=== PATIENT | male | born 1995 | race African-American/Black ===

== ENCOUNTER 2019-06-21 15:53 | Emergency (ER) | payer MEDICAID ==
[~2019-06-21] VITALS: Ht 177.8 cm; Wt 68.0 kg
[2019-06-21 16:35] VITALS: BP 111/74
[2019-06-21] MEDS ORDERED: ACETAMINOPHEN 325MG TABLET PO ONE (17:00)
[2019-06-21] MEDS ORDERED: BACITRACIN ZINC OINT UDPKT TOP ONE (17:00)
== END 2019-06-21 17:30 | disposition left against medical advice (07) ==
LOC: ER 16:11
DX: S00.83XA Contusion of other part of head, initial encounter (principal); Y08.89XA Assault by other specified means, initial encounter; Y93.89 Activity, other specified; Y92.89 Other specified places as the place of occurrence of the external cause; Y99.8 Other external cause status
CPT/HCPCS: 99283

== ENCOUNTER 2019-09-03 19:09 | Emergency (ER) | payer BC, MEDICAID ==
[~2019-09-03] VITALS: Ht 182.9 cm; Wt 82.0 kg
[2019-09-03] MEDS ORDERED: KETOROLAC 30MG/ML VIAL IV STA ×2 (20:54→23:42)
[2019-09-03] MEDS ORDERED: CEFTRIAXONE 1 G PREMIX 50 ML IV ONE (21:00)
[2019-09-03 21:42] LABS: BASOPHILS % 0.5 % (0.0-2.0); HEMATOCRIT. 46.8 % (42.0-52.0); HEMOGLOBIN. 15.5 g/dL (14.0-18.0); LYMPHOCYTES % 10.1 % (20.0-50.0); MEAN CORPUSCULAR HEMOGLOBIN 29.4 pg (28.0-32.0); MEAN PLATELET VOLUME 9.3 fl (7.4-10.4); MONOCYTES % 10.2 % (2.0-8.0); NEUTROPHILS % 79.2 % (40.0-76.0); PLATELET 182 x1000/uL (130-400); RED BLOOD CELL COUNT 5.26 mill/uL (4.7-6.1); RED CELL DISTRIBUTION WIDTH 13.3 % (11.6-14.6)
[2019-09-03 21:49] LABS: CHLORIDE 99 mEq/L (98-107)
[2019-09-03] MEDS ORDERED: IOHEXOL-300 100 ML BOTTLE ONE (22:46)
[2019-09-03] MEDS ORDERED: VANCOMYCIN 1 G PREMIX 200 ML IV ONE (23:45)
[2019-09-03] MEDS ORDERED: BACITRACIN ZINC OINT UDPKT TOP ONE (23:45)
[2019-09-03] MEDS ORDERED: LIDOCAINE HCL/PF 1% 10 MG/ML 5ML VIAL IJ ONE (23:45)
[2019-09-04 02:01] VITALS: BP 121/81
== END 2019-09-04 02:13 | disposition home or self-care (01) ==
LOC: ER 19:09
DX: L02.214 Cutaneous abscess of groin (principal)
CPT/HCPCS: 36415; 72193; 80053; 85025; 87040; 96365; 96366; 96367; 96375; 96376; 99284; J0696; J1885; J3370; J3490; Q9967; Z7610

== ENCOUNTER 2019-09-06 12:12 | Emergency (ER) | payer BC, MEDICAID ==
[~2019-09-06] VITALS: Ht 177.8 cm; Wt 82.0 kg
[2019-09-06 12:37] VITALS: BP 118/71
== END 2019-09-06 15:15 | disposition left against medical advice (07) ==
LOC: ER 12:12
DX: L02.31 Cutaneous abscess of buttock (principal); Z53.21 Procedure and treatment not carried out due to patient leaving prior to being seen by health care provider

== ENCOUNTER 2019-09-06 16:20 | Emergency (ER) | payer BC, MEDICAID ==
[~2019-09-06] VITALS: Ht 177.8 cm; Wt 82.0 kg
[2019-09-06] MEDS ORDERED: BACITRACIN 50,000 UNITS/VIAL IM ONE (17:15)
[2019-09-06] MEDS ORDERED: BACITRACIN ZINC OINT UDPKT TOP ONE (17:30)
[2019-09-06 18:01] VITALS: BP 124/75
== END 2019-09-06 18:08 | disposition home or self-care (01) ==
LOC: ER 16:20
DX: L02.214 Cutaneous abscess of groin (principal)
CPT/HCPCS: 99283; J3490

== ENCOUNTER 2020-02-17 09:18 | Emergency (ER) | payer BC, MEDICAID ==
[~2020-02-17] VITALS: Ht 180.3 cm; Wt 60.0 kg
[2020-02-17 10:23] VITALS: BP 112/78
== END 2020-02-17 10:25 | disposition home or self-care (01) ==
LOC: ER 09:18
DX: R21 Rash and other nonspecific skin eruption (principal)
CPT/HCPCS: 99281

== ENCOUNTER 2020-02-21 09:16 | Emergency (ER) | payer BC, MEDICAID ==
[~2020-02-21] VITALS: Ht 180.3 cm; Wt 61.0 kg
[2020-02-21 10:15] VITALS: BP 126/93
== END 2020-02-21 10:16 | disposition home or self-care (01) ==
LOC: ER 09:24
DX: A64 Unspecified sexually transmitted disease (principal); R20.8 Other disturbances of skin sensation
CPT/HCPCS: 99284

== ENCOUNTER 2020-03-15 09:30 | Emergency (ER) | payer BC, MEDICAID, OTHER ==
[~2020-03-15] VITALS: Ht 180.3 cm; Wt 66.0 kg
[2020-03-15 10:00] VITALS: BP 114/61
== END 2020-03-15 10:06 | disposition home or self-care (01) ==
LOC: ER 09:30
DX: N48.89 Other specified disorders of penis (principal)
CPT/HCPCS: 99281

== ENCOUNTER 2020-03-22 11:17 | Emergency (ER) | payer OTHER ==
[~2020-03-22] VITALS: Ht 180.3 cm; Wt 63.5 kg
[2020-03-22 11:30] VITALS: BP 100/76
== END 2020-03-22 12:21 | disposition home or self-care (01) ==
LOC: ER 11:17
DX: B35.6 Tinea cruris (principal)
CPT/HCPCS: 99281; 99282

== ENCOUNTER 2020-03-26 11:36 | Emergency (ER) | payer OTHER ==
[~2020-03-26] VITALS: Ht 180.3 cm; Wt 62.0 kg
[2020-03-26 11:37] VITALS: BP 114/72
== END 2020-03-26 11:53 | disposition left against medical advice (07) ==
LOC: ER 11:40
DX: Z53.21 Procedure and treatment not carried out due to patient leaving prior to being seen by health care provider (principal)

== ENCOUNTER 2020-05-27 21:18 | Emergency (ER) | payer OTHER ==
[~2020-05-27] VITALS: Ht 180.3 cm; Wt 72.0 kg
[2020-05-28 01:38] VITALS: BP 105/68
== END 2020-05-28 01:45 | disposition home or self-care (01) ==
LOC: ER 21:18
DX: S06.0X9A Concussion with loss of consciousness of unspecified duration, initial encounter (principal); F17.210 Nicotine dependence, cigarettes, uncomplicated; V43.52XA Car driver injured in collision with other type car in traffic accident, initial encounter; Y93.89 Activity, other specified; Y92.488 Other paved roadways as the place of occurrence of the external cause
CPT/HCPCS: 93005; 99284

== ENCOUNTER 2020-08-30 10:40 | Emergency (ER) | payer MEDICAID, OTHER ==
[~2020-08-30] VITALS: Ht 175.3 cm; Wt 70.0 kg
[2020-08-30 10:47] VITALS: BP 105/69
== END 2020-08-30 11:48 | disposition home or self-care (01) ==
LOC: ER 10:40
DX: F41.9 Anxiety disorder, unspecified (principal); F12.10 Cannabis abuse, uncomplicated
CPT/HCPCS: 99281

== ENCOUNTER 2020-09-20 19:30 | Emergency (ER) | payer OTHER ==
[~2020-09-20] VITALS: Ht 180.3 cm; Wt 60.0 kg
[2020-09-20 20:21] VITALS: BP 112/74
[2020-09-20] MEDS ORDERED: AZIT250T12 MT (21:00)
[2020-09-20] MEDS ORDERED: IBUP-2029 MT (21:00)
== END 2020-09-20 21:09 | disposition home or self-care (01) ==
LOC: ER 19:30
DX: J02.8 Acute pharyngitis due to other specified organisms (principal); F12.10 Cannabis abuse, uncomplicated; F17.200 Nicotine dependence, unspecified, uncomplicated; Z79.899 Other long term (current) drug therapy
CPT/HCPCS: 99283

== ENCOUNTER 2020-11-25 11:56 | Emergency (ER) | payer MEDICAID, OTHER ==
[~2020-11-25] VITALS: Ht 180.3 cm; Wt 66.0 kg
[~2020-11-25 11:56] MED LIST: AZIT250T12 MT; FLUT15.813 BOTHNSTRLS; IBUP-2029 MT
[2020-11-25 11:59] VITALS: BP 126/75
[2020-11-25] MEDS ORDERED: NAPR-681 PO (12:28)
[2020-11-25] MEDS ORDERED: D-ME473S50 PO (12:28)
[2020-11-26] MEDS ORDERED: FAMO-135 MT (18:16)
== END 2020-11-25 12:43 | disposition home or self-care (01) ==
LOC: ER 11:56
DX: J30.9 Allergic rhinitis, unspecified (principal); F12.10 Cannabis abuse, uncomplicated
CPT/HCPCS: 99283

== ENCOUNTER 2020-11-26 17:35 | Emergency (ER) | payer MEDICAID ==
[~2020-11-26] VITALS: Ht 180.3 cm; Wt 66.0 kg
[~2020-11-26 17:35] MED LIST changes: +D-ME473S50 PO; +NAPR-681 PO
[2020-11-26 17:41] VITALS: BP 123/82
[2020-11-26] MEDS ORDERED: FAMO-135 MT (18:16)
== END 2020-11-26 19:00 | disposition home or self-care (01) ==
LOC: ER 17:35
DX: K21.9 Gastro-esophageal reflux disease without esophagitis (principal); R07.0 Pain in throat; F12.10 Cannabis abuse, uncomplicated
CPT/HCPCS: 99282

== ENCOUNTER 2020-11-28 18:22 | Emergency (ER) | payer MEDICAID ==
[~2020-11-28] VITALS: Ht 180.3 cm; Wt 66.0 kg
[~2020-11-28 18:22] MED LIST changes: +FAMO-135 MT
[2020-11-28] MEDS ORDERED: MAGNESIUM/ALUMINUM HYDROXIDE/SIMETHICONE 30ML UDC PO ONE (20:45)
[2020-11-28 21:43] VITALS: BP 118/63
== END 2020-11-28 21:46 | disposition home or self-care (01) ==
LOC: ER 18:22
DX: R13.10 Dysphagia, unspecified (principal); F12.10 Cannabis abuse, uncomplicated
CPT/HCPCS: 99282

== ENCOUNTER 2020-12-03 20:16 | Emergency (ER) | payer MEDICAID ==
[~2020-12-03] VITALS: Ht 180.3 cm; Wt 66.0 kg
[2020-12-03 20:22] VITALS: BP 119/70
[2020-12-03] MEDS ORDERED: MAGNESIUM/ALUMINUM HYDROXIDE/SIMETHICONE 30ML UDC PO ONE (22:45)
== END 2020-12-03 23:18 | disposition home or self-care (01) ==
LOC: ER 20:16
DX: R07.0 Pain in throat (principal); F12.10 Cannabis abuse, uncomplicated; F17.210 Nicotine dependence, cigarettes, uncomplicated
CPT/HCPCS: 99282

== ENCOUNTER 2021-03-31 22:36 | Emergency (ER) | payer MEDICAID ==
[~2021-03-31] VITALS: Ht 180.3 cm; Wt 58.0 kg
[2021-03-31] MEDS ORDERED: ALBUTEROL 6.7GM HFA INHALER ORI ONE (23:45)
[2021-04-01] MEDS ORDERED: OXYMETAZOLINE HCL NASAL SPRAY 15ML BOTHNSTRLS SCH (01:30)
[2021-04-01 02:01] VITALS: BP 135/76
== END 2021-04-01 01:55 | disposition home or self-care (01) ==
LOC: ER 22:36
DX: J30.9 Allergic rhinitis, unspecified (principal); F12.10 Cannabis abuse, uncomplicated; Z20.822 Contact with and (suspected) exposure to COVID-19
CPT/HCPCS: 71045; 87426; 99284; Z7610

== ENCOUNTER 2021-05-07 10:46 | Emergency (ER) | payer MEDICAID ==
[~2021-05-07] VITALS: Ht 180.3 cm; Wt 56.0 kg
[2021-05-07 11:01] VITALS: BP 111/69
[2021-05-07] MEDS ORDERED: P-EP-312 MT (11:28)
[2021-05-07] MEDS ORDERED: FLUT9.9S BOTHNSTRLS (11:28)
== END 2021-05-07 11:44 | disposition home or self-care (01) ==
LOC: ER 10:46
DX: J30.9 Allergic rhinitis, unspecified (principal); F12.10 Cannabis abuse, uncomplicated; Z79.899 Other long term (current) drug therapy
CPT/HCPCS: 99283

== ENCOUNTER 2021-05-12 09:48 | Emergency (ER) | payer BC, OTHER ==
[~2021-05-12] VITALS: Ht 172.7 cm; Wt 56.0 kg
[~2021-05-12 09:48] MED LIST changes: +FLUT9.9S BOTHNSTRLS; +P-EP-312 MT
[2021-05-12 09:50] VITALS: BP 112/71
[2021-05-12] MEDS ORDERED: LORA10TA7 MT (10:00)
== END 2021-05-12 10:11 | disposition home or self-care (01) ==
LOC: ER 09:48
DX: T78.40XA Allergy, unspecified, initial encounter (principal); F12.10 Cannabis abuse, uncomplicated; Z79.899 Other long term (current) drug therapy
CPT/HCPCS: 99282

== ENCOUNTER 2021-05-27 18:44 | Emergency (ER) | payer BC, OTHER ==
[~2021-05-27] VITALS: Ht 180.3 cm; Wt 59.0 kg
[~2021-05-27 18:44] MED LIST changes: +LORA10TA7 MT
[2021-05-27 18:50] VITALS: BP 106/60
[2021-05-27] MEDS ORDERED: FLUT9.9S BOTHNSTRLS (19:29)
== END 2021-05-27 20:17 | disposition home or self-care (01) ==
LOC: ER 18:44
DX: J30.9 Allergic rhinitis, unspecified (principal); F12.10 Cannabis abuse, uncomplicated
CPT/HCPCS: 99281

== ENCOUNTER 2021-06-03 13:25 | Emergency (ER) | payer BC, OTHER ==
[~2021-06-03] VITALS: Ht 177.8 cm; Wt 75.0 kg
[2021-06-03] MEDS ORDERED: FLUT9.9S16 BOTHNSTRLS (15:49)
[2021-06-03 16:16] VITALS: BP 135/83
== END 2021-06-03 16:17 | disposition home or self-care (01) ==
LOC: ER 13:34
DX: J30.9 Allergic rhinitis, unspecified (principal); F12.10 Cannabis abuse, uncomplicated
CPT/HCPCS: 99283

== ENCOUNTER 2021-06-09 15:53 | Emergency (ER) | payer BC, OTHER ==
[~2021-06-09] VITALS: Ht 177.8 cm; Wt 58.0 kg
[~2021-06-09 15:53] MED LIST changes: +FLUT9.9S16 BOTHNSTRLS
[2021-06-09 15:56] VITALS: BP 124/81
[2021-06-10] MEDS ORDERED: P-EP-91 MT (09:38)
[2021-06-10] MEDS ORDERED: FLUT9.9S BOTHNSTRLS (09:38)
== END 2021-06-09 17:48 | disposition left against medical advice (07) ==
LOC: ER 15:53
DX: Z53.21 Procedure and treatment not carried out due to patient leaving prior to being seen by health care provider (principal)

== ENCOUNTER 2021-06-10 08:57 | Emergency (ER) | payer BC, OTHER ==
[~2021-06-10] VITALS: Ht 180.3 cm; Wt 59.0 kg
[2021-06-10 09:12] VITALS: BP 103/76
[2021-06-10] MEDS ORDERED: LORATADINE 10MG TABLET PO STA (09:32)
[2021-06-10] MEDS ORDERED: FLUTICASONE PROPIONATE 50MCG/SPRAY BOTTLE BOTHNSTRLS STA (09:32)
[2021-06-10] MEDS ORDERED: P-EP-91 MT (09:38)
[2021-06-10] MEDS ORDERED: FLUT9.9S BOTHNSTRLS (09:38)
== END 2021-06-10 10:10 | disposition home or self-care (01) ==
LOC: ER 09:18
DX: T78.40XA Allergy, unspecified, initial encounter (principal); X58.XXXA Exposure to other specified factors, initial encounter
CPT/HCPCS: 99283

== ENCOUNTER 2021-10-10 19:03 | Emergency (ER) | payer BC, OTHER ==
[~2021-10-10] VITALS: Ht 180.3 cm; Wt 67.0 kg
[~2021-10-10 19:03] MED LIST changes: +P-EP-91 MT
[2021-10-10 19:05] VITALS: BP 129/60
[2021-10-11] MEDS ORDERED: NAPR-681 MT (11:11)
[2021-10-11] MEDS ORDERED: CYCL10TA7 MT (11:11)
== END 2021-10-11 00:24 | disposition left against medical advice (07) ==
LOC: ER 19:03
DX: Z53.21 Procedure and treatment not carried out due to patient leaving prior to being seen by health care provider (principal)

== ENCOUNTER 2021-10-11 10:19 | Emergency (ER) | payer BC, OTHER ==
[~2021-10-11] VITALS: Ht 180.3 cm; Wt 85.0 kg
[2021-10-11 10:36] VITALS: BP 106/66
[2021-10-11] MEDS ORDERED: KETOROLAC 60MG/2ML VIAL IM ONE (10:45)
[2021-10-11] MEDS ORDERED: CYCL10TA7 MT (11:11)
[2021-10-11] MEDS ORDERED: NAPR-681 MT (11:11)
== END 2021-10-11 11:42 | disposition home or self-care (01) ==
LOC: ER 10:19
DX: M54.50 Low back pain, unspecified (principal); F12.10 Cannabis abuse, uncomplicated; X50.0XXA Overexertion from strenuous movement or load, initial encounter; Y93.89 Activity, other specified; Y92.89 Other specified places as the place of occurrence of the external cause; Y99.8 Other external cause status
CPT/HCPCS: 96372; 99283; J1885

== ENCOUNTER 2021-10-15 21:43 | Emergency (ER) | payer BC, OTHER ==
[~2021-10-15] VITALS: Ht 180.3 cm; Wt 63.0 kg
[~2021-10-15 21:43] MED LIST changes: +CYCL10TA7 MT; +NAPR-681 MT
[2021-10-15] MEDS ORDERED: KETOROLAC 60MG/2ML VIAL IM ONE (22:30)
[2021-10-16 01:14] VITALS: BP 110/66
== END 2021-10-16 01:16 | disposition home or self-care (01) ==
LOC: ER 21:43
DX: S09.8XXD Other specified injuries of head, subsequent encounter (principal); F12.10 Cannabis abuse, uncomplicated; V43.52XA Car driver injured in collision with other type car in traffic accident, initial encounter; Y93.89 Activity, other specified; Y92.488 Other paved roadways as the place of occurrence of the external cause
CPT/HCPCS: 96372; 99283; J1885

== ENCOUNTER 2023-08-16 11:07 | Emergency (ER) | payer BC, MEDICAID, OTHER ==
[~2023-08-16] VITALS: Ht 180.3 cm; Wt 68.0 kg
[~2023-08-16 11:07] MED LIST changes: +CYCL10TA21 MT; -CYCL10TA7 MT; -FLUT15.813 BOTHNSTRLS; +[UNRECOGNIZED DRUG - CODE] BOTHNSTRLS
[2023-08-16 11:13] VITALS: BP 117/68; PULSE 50; RESP 20; TEMP 97.8; O2SAT 100
[2023-08-16] MEDS ORDERED: FLUT9.9S BOTHNSTRLS (11:49)
== END 2023-08-16 12:06 | disposition home or self-care (01) ==
LOC: ER 11:07
DX: J30.9 Allergic rhinitis, unspecified (principal); F12.10 Cannabis abuse, uncomplicated; Z79.899 Other long term (current) drug therapy
CPT/HCPCS: 99282

== ENCOUNTER 2023-09-11 11:11 | Emergency (ER) | payer MEDICAID ==
[~2023-09-11] VITALS: Ht 180.3 cm; Wt 63.0 kg
[2023-09-11 11:19] VITALS: BP 114/69; RESP 20; TEMP 98.5; O2SAT 99
[2023-09-11 11:21] VITALS: PULSE 56
[2023-09-11] MEDS ORDERED: FLUT9.9S BOTHNSTRLS (11:50)
== END 2023-09-11 12:15 | disposition home or self-care (01) ==
LOC: ER 11:11
DX: J30.9 Allergic rhinitis, unspecified (principal); F12.10 Cannabis abuse, uncomplicated; Z79.899 Other long term (current) drug therapy
CPT/HCPCS: 99283

== ENCOUNTER 2023-12-31 10:27 | Emergency (ER) | payer MEDICAID ==
[~2023-12-31] VITALS: Ht 177.8 cm; Wt 64.0 kg
[2023-12-31 11:08] VITALS: O2SAT 99
[2023-12-31] MEDS ORDERED: CARB-274 EACH EAR (14:07)
[2023-12-31 14:25] VITALS: BP 111/73; PULSE 62; RESP 18; TEMP 98.6
== END 2023-12-31 14:27 | disposition home or self-care (01) ==
LOC: ER 10:27
DX: H61.23 Impacted cerumen, bilateral (principal)
CPT/HCPCS: 99282

== ENCOUNTER 2024-02-02 06:01 | Emergency (ER) | payer MEDICAID, OTHER ==
[~2024-02-02] VITALS: Ht 182.9 cm; Wt 63.0 kg
[~2024-02-02 06:01] MED LIST changes: +CARB-274 EACH EAR
[2024-02-02 06:13] VITALS: TEMP 98.2; O2SAT 100
[2024-02-02] MEDS ORDERED: KETOROLAC 30MG/ML VIAL IV STA (06:53)
[2024-02-02] MEDS: SODIUM CHLORIDE 0.9% 1,000 ML IV ONE (08:30)
[2024-02-02 09:14] LABS: CHLORIDE 106 mEq/L (98-107); POTASSIUM 3.7 mEq/L (3.5-5.1); SODIUM 138 mEq/L (136-145)
[2024-02-02 09:15] LABS: CALCIUM 9.9 mg/dL (8.7-10.4); CARBON DIOXIDE 27 mEq/L (21-32); PROTHROMBIN TIME 11.2 sec (9.6-11.0)
[2024-02-02 09:17] LABS: BASOPHILS % 0.4 % (0.0-2.0); HEMATOCRIT. 46.3 % (42.0-52.0); HEMOGLOBIN. 14.9 g/dL (14.0-18.0); LYMPHOCYTES % 13.1 % (20.0-50.0); MEAN CORPUSCULAR HEMOGLOBIN 29.5 pg (28.0-32.0); MEAN CORPUSCULAR HGB CONC 32.2 g/dL (31.0-37.0); MEAN CORPUSCULAR VOLUME 91.3 fL (80.0-94.0); MEAN PLATELET VOLUME 8.9 fl (7.4-10.4); NEUTROPHILS % 75.5 % (40.0-76.0); PLATELET 200 x1000/uL (130-400); RED BLOOD CELL COUNT 5.07 mill/uL (4.7-6.1); RED CELL DISTRIBUTION WIDTH 13.1 % (11.6-14.6); WHITE BLOOD COUNT 7.3 x1000/uL (4.5-11.0)
[2024-02-02 09:20] LABS: GLUCOSE 84 mg/dL (70-105); UREA NITROGEN BLOOD 12 mg/dL (9-23)
[2024-02-02] MEDS: KETOROLAC 30MG/ML VIAL IV NR (09:51)
[2024-02-02] MEDS ORDERED: DICY20TA2 MT (11:17)
[2024-02-02] MEDS ORDERED: ONDA4TAB11 PO (11:17)
[2024-02-02 12:01] VITALS: BP 105/68; PULSE 65; RESP 14
[2024-02-02] MEDS ORDERED: IOHEXOL-300 100 ML BOTTLE ONE (12:44)
== END 2024-02-02 12:04 | disposition home or self-care (01) ==
LOC: ER 06:01 → CANBEDREQ 11:40 → ER 12:04
DX: K52.9 Noninfective gastroenteritis and colitis, unspecified (principal); F12.10 Cannabis abuse, uncomplicated; Z79.899 Other long term (current) drug therapy
CPT/HCPCS: 80048; 83690; 85025; 85610; 36415; 74177; 96361; 96374; 99285; Q9967; J1885; J7030; Z7610 ×4

== ENCOUNTER 2025-01-27 20:36 | Emergency (ER) | payer SELFPAY ==
[~2025-01-27] VITALS: Ht 180.3 cm; Wt 84.0 kg
[~2025-01-27 20:36] MED LIST changes: +DICY20TA2 MT; +ONDA-239 PO
[2025-01-27 20:40] VITALS: O2SAT 92
[2025-01-27] MEDS ORDERED: FAMO-135 MT (23:51)
[2025-01-28 00:18] VITALS: BP 106/67; PULSE 71; RESP 12; TEMP 36.7; O2SAT 99
== END 2025-01-28 00:20 | disposition home or self-care (01) ==
LOC: ER 20:36
DX: J02.9 Acute pharyngitis, unspecified (principal); K21.9 Gastro-esophageal reflux disease without esophagitis; F17.200 Nicotine dependence, unspecified, uncomplicated; F12.90 Cannabis use, unspecified, uncomplicated; F41.9 Anxiety disorder, unspecified; Z79.899 Other long term (current) drug therapy
CPT/HCPCS: 99283